=== PATIENT | male | born 1945 | race Hispanic/Latino ===

== ENCOUNTER 2020-02-01 07:21 | Day surgery (SDC) | payer OTHER ==
[2020-02-01] VITALS (16 sets, daily range): BP systolic 83–181; BP diastolic 46–87
[~2020-02-01] VITALS: Ht 169.2 cm; Wt 86.9 kg
[~2020-02-01 07:21] MED LIST: AEC81 PO; ATEN25TA PO; ATOR40TA69 PO; CHOL100053 PO; FERR325T22 PO; INSU100V12 SQ; PANT40TA25 PO; SEVE800T27 PO
[2020-02-01 08:34] LABS: BASOPHILS % (AUTO) 1.2 % (0.0-5.0); EOSINOPHILS % (AUTO) 4.1 % (0.0-8.0); HEMATOCRIT 34.7 % (42-54); LYMPHOCYTES % (AUTO) 24.8 % (21.0-51.0); MEAN CORPUSCULAR HEMOGLOBIN 29.8 pg (27.0-33.0); MEAN CORPUSCULAR HGB CONC 30.8 g/dL (32.0-36.0); MEAN CORPUSCULAR VOLUME 96.7 fL (79-99); MONOCYTES % (AUTO) 11.3 % (3.0-13.0); NEUTROPHILS % (AUTO) 58.4 % (40.0-77.0); PLATELET COUNT (AUTO) 235 K/uL (130-400); RED BLOOD CELL COUNT(AUTO) 3.59 MIL/uL (4.50-6.20); RED CELL DISTRIBUTION WIDTH 15.7 % (11.0-15.5); WHITE BLOOD COUNT (AUTO) 8.3 K/uL (4.8-10.8)
[2020-02-01 08:47] LABS: CREATININE 7.3 mg/dL (0.5-1.5); POTASSIUM 5.5 mmol/L (3.5-5.1)
[2020-02-01 08:48] LABS: INR 0.92 (0.85-1.15); PARTIAL THROMBOPLASTIN TIME 25.5 SEC (26.3-35.5)
[2020-02-01 08:50] LABS: HEMOGLOBIN A1C 11.2 % (4.0-6.0)
[2020-02-01 08:52] LABS: ALBUMIN 3.3 g/dL (3.5-5.0); BILIRUBIN,TOTAL 0.4 mg/dL (0.2-1.0); TOTAL PROTEIN, SERUM 7.1 g/dL (6.0-8.3)
[2020-02-01] MEDS ORDERED: CA/D1TAB3 PO (09:07)
[2020-02-01] MEDS ORDERED: FOLI0.8T2 PO (09:07)
[2020-02-01] MEDS ORDERED: CYAN250010 PO (09:07)
[2020-02-01] MEDS ORDERED: LOSA100T58 PO (09:07)
[2020-02-01] MEDS ORDERED: ZINC50TA64 PO (09:07)
[2020-02-01] MEDS ORDERED: SODIUM CHLORIDE 0.9% 1000ML 1,000 ML IV ONE (09:11)
[2020-02-01] MEDS: CEFUROXIME SODIUM 1.5 GM VIAL ONE ×2 (09:20→11:10)
[2020-02-01] MEDS ORDERED: MIDAZOLAM HCL 1 MG/ML 2ML VIAL ONE (10:33)
[2020-02-01] MEDS ORDERED: ROPIVACAINE 0.5% 5MG/ML 30ML IJ ONE (10:34)
[2020-02-01] MEDS ORDERED: KETAMINE 50MG/ML SYRINGE 50 MG/ML DISP.SYRIN IV ONE (11:11)
[2020-02-01] MEDS ORDERED: CEFAZOLIN SODIUM 1 GM VIAL ONE (11:14)
[2020-02-01] MEDS ORDERED: TRAMADOL HCL 50 MG TABLET PO PRN ×2 (11:30)
[2020-02-01] MEDS ORDERED: ACETAMINOPHEN 325 MG TAB PO PRN (11:30)
[2020-02-01] MEDS ORDERED: TRAM50TA4 PO (11:32)
[2020-02-01] MEDS ORDERED: EPHEDRINE SULFATE 50 MG/ML AMPULE ONE (11:47)
--- NOTE | 2020-02-01 13:35 | NUR ---
RECEIVED PATIENT FROM JALEESA WARNER. PATIENT AAOX3, RESPIRATIONS UNLABORED, VITAL SIGNS STABLE, DENIES ANY PAIN AT THIS TIME. DRESSING TO LEFT FOREARM IS DRY AND INTACT, NO BLEEDING OR DRAINING NOTED. PATIENT STATED THAT HIS LEFT ARM FEELS NUMB BUT HE IS ABLE TO MOVE HIS FINGERS ON HIS LEFT HAND. EXPLAINED TO PATIENT THAT NERVE BLOCK WILL BE WEARING OFF IN A FEW HOURS.
--- NOTE | 2020-02-01 13:55 | NUR ---
DISHARGE INSTRUCTIONS PROVIDED TO PATIENT'S DAUGHTER , GAURI, VIA TELEPHONE. FOLLOW UP APPOINTMENT PROVIDED AND HANDOUTS WITH INCISION CARE PROVIDED WELL. INSTRUCTED DAUGHTER THAT PAIN MEDICATION WAS CALLED INTO [facility] FOR THE PATIENT. ALL QUESTIONS/CONCERNS ADDRESSED.
--- NOTE | 2020-02-01 14:15 | NUR ---
PATIENT DISCHARGED FROM FACILITY VIA WHEELCHAIR BY NURSE. PATIENT ASSISTED INTO PRIVATE VEHICLE DRIVEN BY FAMILY MEMBER.
== END 2020-02-01 14:15 | disposition home or self-care (01) ==
LOC: DAH 07:21
PROVIDERS: ATTEND Thoracic Surgery (Cardiothoracic Vascular Surgery)
DX: T82.590A Other mechanical complication of surgically created arteriovenous fistula, initial encounter (principal); I12.0 Hypertensive chronic kidney disease with stage 5 chronic kidney disease or end stage renal disease; N18.6 End stage renal disease; E11.22 Type 2 diabetes mellitus with diabetic chronic kidney disease; Z79.82 Long term (current) use of aspirin; Z79.4 Long term (current) use of insulin; Z79.899 Other long term (current) drug therapy; Y83.8 Other surgical procedures as the cause of abnormal reaction of the patient, or of later complication, without mention of misadventure at the time of the procedure
CPT/HCPCS: 36415; 36821; 71045; 80053; 82948 ×2; 83036; 85025; 85610; 85730; 93005; A4215; A4221; A4222; A4223; A4649; A4663; A6207; C1713 ×2; G0168; J0690; J0697; J1644; J2250; J2795; J3490 ×2; J7030

== ENCOUNTER 2020-03-25 15:21 | Inpatient (IN) | payer OTHER ==
[~2020-03-25] VITALS: Ht 167.6 cm; Wt 82.6 kg
[~2020-03-25 15:21] MED LIST changes: +CA/D1TAB3 PO; -CHOL100053 PO; +CYAN250010 PO; +FOLI0.8T2 PO; +LOSA100T58 PO; -PANT40TA25 PO; +TRAM50TA4 PO; +ZINC50TA64 PO
[2020-03-25 16:42] LABS: BASOPHILS % (AUTO) 0.4 % (0.0-5.0); EOSINOPHILS % (AUTO) 0.2 % (0.0-8.0); HEMATOCRIT 37.2 % (42-54); LYMPHOCYTES % (AUTO) 19.8 % (21.0-51.0); MEAN CORPUSCULAR HEMOGLOBIN 28.7 pg (27.0-33.0); MEAN CORPUSCULAR HGB CONC 31.5 g/dL (32.0-36.0); MEAN CORPUSCULAR VOLUME 91.2 fL (79-99); NEUTROPHILS % (AUTO) 66.7 % (40.0-77.0); PLATELET COUNT (AUTO) 234 K/uL (130-400); RED BLOOD CELL COUNT(AUTO) 4.08 MIL/uL (4.50-6.20); RED CELL DISTRIBUTION WIDTH 15.4 % (11.0-15.5); WHITE BLOOD COUNT (AUTO) 4.5 K/uL (4.8-10.8)
[2020-03-25 16:51] LABS: CREATININE 7.4 mg/dL (0.5-1.5); POTASSIUM 4.6 mmol/L (3.5-5.1)
[2020-03-25 16:56] LABS: ALBUMIN 3.1 g/dL (3.5-5.0); BILIRUBIN,TOTAL 0.4 mg/dL (0.2-1.0); TOTAL PROTEIN, SERUM 7.2 g/dL (6.0-8.3)
[2020-03-25 17:00] LABS: B-TYPE NATRIURETIC PEPTIDE 234 pg/mL (0-100)
[2020-03-25 18:53] LABS: ABG BASE EXCESS -1.1 mmol/L (-2.0-3.0); ABG HCO3 23.9 mmol/L (21.0-28.0); ABG OXYGEN SATURATION 94.1 % (95.0-99.0); ABG PCO2 41 mmHg (35-48)
[2020-03-25] MEDS ORDERED: ONDANSETRON HCL 4 MG/2 ML VIAL IVP PRN (20:45)
[2020-03-25 21:00] VITALS: BP 205/85
[2020-03-25] MEDS: INSULIN R PO SS1 SQ SCH (21:00)
[2020-03-25] MEDS: DEXAMETHASONE SOD PHOSPHATE 4 MG/ML 1ML VIAL IVP SCH (21:00)
[2020-03-25 21:15] LABS: APPEARANCE,URINE Clear (CLEAR); BILIRUBIN,URINE Negative (NEGATIVE); COLOR,URINE Yellow (YELLOW); GLUCOSE, URINE (UA) 500 mg/dL (NEGATIVE); KETONES,URINE Trace mg/dL (NEGATIVE); LEUKOCYTE ESTERASE ,URINE Negative (NEGATIVE); NITRATE,URINE Negative (NEGATIVE); OCCULT BLOOD,URINE Negative (NEGATIVE); PH,URINE 7.5 (5.0-8.0); PROTEIN,URINE >=1000 mg/dL (NEGATIVE)
[2020-03-25 21:23] LABS: BACTERIA,URINE Rare /HPF (None Seen); RBC,URINE 0-1 /HPF (0-1); SQUAMOUS EPITHELIAL CELL,UR Rare /HPF (0-2); WBC,URINE 0-1 /HPF (0-1)
[2020-03-25] MEDS ORDERED: ATOR40TA69 PO (22:20)
[2020-03-25] MEDS ORDERED: ATEN25TA PO (22:20)
[2020-03-25] MEDS ORDERED: PANT40TA25 PO (22:20)
[2020-03-25] MEDS ORDERED: LOSA100T58 PO (22:20)
[2020-03-25] MEDS ORDERED: CYAN1TAB41 SL (22:20)
[2020-03-25] MEDS ORDERED: ENOXAPARIN SODIUM 40 MG/0.4 ML SYRINGE SQ ONE (22:29)
[2020-03-25] MEDS ORDERED: HYDRALAZINE HCL 20 MG/ML VIAL ONE (22:29)
[2020-03-25] MEDS ORDERED: INSULIN HUMULIN R 100 UNIT/ML 3ML ONE (22:34)
[2020-03-25] MEDS ORDERED: HYDRALAZINE HCL 20 MG/ML VIAL IV PRN (23:00)
[2020-03-25] MEDS: ENOXAPARIN SODIUM 40 MG/0.4 ML SYRINGE SQ SCH (23:00)
[2020-03-25] MEDS ORDERED: NITROGLYCERIN 1GM/1 INCH PACKET TD ONE (23:34)
[2020-03-25] MEDS ORDERED: LABETALOL HCL 5 MG/ML 20ML VIAL IV ONE (23:34)
[2020-03-25] MEDS ORDERED: MORPHINE SULFATE 2 MG/ML 1ML SYG ONE (23:35)
[2020-03-25 23:44] LABS: HEMATOCRIT 38.7 % (42-54); MEAN CORPUSCULAR HEMOGLOBIN 28.5 pg (27.0-33.0); MEAN CORPUSCULAR HGB CONC 31.8 g/dL (32.0-36.0); MEAN CORPUSCULAR VOLUME 89.6 fL (79-99); RED BLOOD CELL COUNT(AUTO) 4.32 MIL/uL (4.50-6.20); RED CELL DISTRIBUTION WIDTH 15.4 % (11.0-15.5)
[2020-03-26] MEDS ORDERED: LABETALOL HCL 5 MG/ML 20ML VIAL IV PRN
[2020-03-26] MEDS ORDERED: ALBUTEROL SULFATE 0.083% 2.5 MG/3 ML INH IH SCH
[2020-03-26] MEDS ORDERED: MORPHINE SULFATE 2 MG/ML 1ML SYG IVP PRN
[2020-03-26 00:01] VITALS: BP 160/87
[2020-03-26 00:05] LABS: ALANINE AMINOTRANSFERASE 17 U/L (12-78); ALBUMIN 3.1 g/dL (3.5-5.0); ASPARTATE AMINOTRANSFERASE 26 U/L (10-37); BILIRUBIN,TOTAL 0.4 mg/dL (0.2-1.0); CARBON DIOXIDE 27 mmol/L (21-32); CHLORIDE 96 mmol/L (101-111); CREATINE KINASE, TOTAL 59 U/L (21-232); GLOMERULAR FILTR. RATE CALC 7 mL/min (>60); GLUCOSE,RANDOM 248 mg/dL (70-105); MYOGLOBIN 354 ng/mL (10-92); SODIUM SERUM 136 mmol/L (136-145); TOTAL PROTEIN, SERUM 7.3 g/dL (6.0-8.3); TROPONIN I < 0.04 ng/mL (0.00-0.06); UREA NITROGEN, BLOOD 51 mg/dL (7-18)
[2020-03-26 00:06] LABS: CREATININE 8.2 mg/dL (0.5-1.5)
[2020-03-26] MEDS ORDERED: AZITHROMYCIN 500MG+NS 250ML 250 ML IV ONE ×2 (00:07→22:18)
[2020-03-26] MEDS ORDERED: DEXAMETHASONE SOD PHOSPHATE 10MG/ML 1ML VIAL ONE (00:07)
[2020-03-26] MEDS: AZITHROMYCIN 500MG+NS 250ML 250 ML IV SCH ×2 (00:09→21:58)
[2020-03-26] MEDS ORDERED: ALBUTEROL INHALER 90MCG/INH IH PRN (01:45)
[2020-03-26 04:00] VITALS: BP 149/67
[2020-03-26 04:40] LABS: BASOPHILS % (AUTO) 0.7 % (0.0-5.0); EOSINOPHILS % (AUTO) 0.9 % (0.0-8.0); HEMATOCRIT 37.2 % (42-54); LYMPHOCYTES % (AUTO) 20.1 % (21.0-51.0); MEAN CORPUSCULAR HEMOGLOBIN 28.6 pg (27.0-33.0); MEAN CORPUSCULAR HGB CONC 31.7 g/dL (32.0-36.0); MEAN CORPUSCULAR VOLUME 90.1 fL (79-99); MONOCYTES % (AUTO) 10.6 % (3.0-13.0); NEUTROPHILS % (AUTO) 66.8 % (40.0-77.0); PLATELET COUNT (AUTO) 228 K/uL (130-400); RED BLOOD CELL COUNT(AUTO) 4.13 MIL/uL (4.50-6.20); RED CELL DISTRIBUTION WIDTH 15.5 % (11.0-15.5); WHITE BLOOD COUNT (AUTO) 4.5 K/uL (4.8-10.8)
[2020-03-26 04:46] LABS: POTASSIUM 4.3 mmol/L (3.5-5.1)
[2020-03-26 04:51] LABS: CREATININE 8.4 mg/dL (0.5-1.5)
[2020-03-26] MEDS ORDERED: NITROGLYCERIN 1GM/1 INCH PACKET TD ONE ×3 (04:58→22:18)
[2020-03-26] MEDS: INSULIN R PO SS1 SQ SCH ×2 (05:22→21:53)
[2020-03-26] MEDS: NITROGLYCERIN 1GM/1 INCH PACKET TD SCH ×3 (05:22→21:59)
[2020-03-26] MEDS ORDERED: ENOXAPARIN SODIUM 40 MG/0.4 ML SYRINGE SQ ONE ×2 (08:27→22:18)
[2020-03-26] MEDS ORDERED: PANTOPRAZOLE SODIUM 40 MG TABLET.DR ONE (08:27)
[2020-03-26] MEDS ORDERED: ASPIRIN 81 MG EC TAB ONE (08:28)
[2020-03-26] MEDS ORDERED: LOSARTAN 50 MG TABLET ONE (08:28)
[2020-03-26] MEDS: ASPIRIN 81 MG EC TAB PO SCH (08:59)
[2020-03-26] MEDS: FOLIC ACID/VITAMIN B COMP W-C 1 CAP TAB PO SCH ×2 (09:00→09:31)
[2020-03-26] MEDS: CYANOCOBALAMIN (VITAMIN B-12) 1,000 MCG TABLET PO SCH ×2 (09:00→09:30)
[2020-03-26] MEDS ORDERED: SEVELAMER HCL 800 MG TABLET PO SCH (09:00)
[2020-03-26] MEDS: PANTOPRAZOLE SODIUM 40 MG TABLET.DR PO SCH (09:02)
[2020-03-26] MEDS: LOSARTAN 100 MG TABLET PO SCH (09:03)
[2020-03-26] MEDS ORDERED: SEVELAMER HCL 800 MG TABLET ONE ×2 (09:04→12:12)
[2020-03-26] MEDS: ENOXAPARIN SODIUM 40 MG/0.4 ML SYRINGE SQ SCH ×2 (09:06→22:00)
[2020-03-26] MEDS: SEVELAMER HCL 800 MG TABLET PO SCH (12:00)
[2020-03-26] MEDS ORDERED: ALBUMIN (HUMAN) 25% 100 ML IV ONE (13:56)
[2020-03-26] MEDS ORDERED: ACETAMINOPHEN 325 MG TAB PO PRN (14:15)
[2020-03-26] MEDS ORDERED: HEPARIN SODIUM 5000UNIT/ML 1ML VIAL IJ PRN (14:15)
[2020-03-26] MEDS ORDERED: 0.9% SODIUM CHLORIDE 1000 ML IV BAG IV PRN (14:15)
[2020-03-26] MEDS ORDERED: LIDOCAINE HCL-MPF 1% 2ML VIAL IJ PRN (14:15)
[2020-03-26] MEDS ORDERED: SODIUM CHLORIDE 0.9% 1000ML 1,000 ML IV PRN (14:15)
[2020-03-26] MEDS ORDERED: HEPARIN SODIUM 5000UNIT/ML 1ML VIAL ONE (14:38)
[2020-03-26] MEDS ORDERED: ACETAMINOPHEN 325 MG TAB ONE (18:49)
[2020-03-26 20:05] VITALS: BP 143/69
[2020-03-26] MEDS: DEXAMETHASONE SOD PHOSPHATE 4 MG/ML 1ML VIAL IVP SCH (21:58)
[2020-03-26] MEDS: ATORVASTATIN CALCIUM 40 MG TABLET PO SCH (21:59)
[2020-03-26] MEDS ORDERED: DEXAMETHASONE SOD PHOSPHATE 4 MG/ML 1ML VIAL ONE (22:17)
[2020-03-26] MEDS ORDERED: ATORVASTATIN CALCIUM 40 MG TABLET ONE (22:17)
[2020-03-26] MEDS: ATENOLOL 25 MG TABLET PO SCH (22:50)
[2020-03-27 00:45] VITALS: BP 137/78
[2020-03-27 04:00] VITALS: BP 135/61
[2020-03-27] MEDS ORDERED: NITROGLYCERIN 1GM/1 INCH PACKET TD ONE ×3 (05:08→16:53)
[2020-03-27] MEDS ORDERED: PANTOPRAZOLE SODIUM 40 MG TABLET.DR ONE (05:09)
[2020-03-27 05:12] LABS: HEMATOCRIT 35.6 % (42-54); MEAN CORPUSCULAR HEMOGLOBIN 28.5 pg (27.0-33.0); MEAN CORPUSCULAR HGB CONC 31.7 g/dL (32.0-36.0); MEAN CORPUSCULAR VOLUME 89.7 fL (79-99); PLATELET COUNT (AUTO) 221 K/uL (130-400); RED BLOOD CELL COUNT(AUTO) 3.97 MIL/uL (4.50-6.20); RED CELL DISTRIBUTION WIDTH 15.3 % (11.0-15.5); WHITE BLOOD COUNT (AUTO) 3.2 K/uL (4.8-10.8)
[2020-03-27] MEDS: NITROGLYCERIN 1GM/1 INCH PACKET TD SCH ×4 (05:15→16:58)
[2020-03-27 05:31] LABS: CREATININE 6.7 mg/dL (0.5-1.5); LYMPHOCYTES % (MANUAL) 16 % (22-44); MONOCYTES % (MANUAL) 8 % (2-9); PHOSPHORUS 5.3 mg/dL (2.5-4.9); POTASSIUM 4.7 mmol/L (3.5-5.1); SEGMENTED NEUTROPHILS % 76 % (40-70)
[2020-03-27 05:32] LABS: MAN.DIFF COMMENT-IMPRESSION MANUAL DIFFERENTIAL; PLATELET MORPHOLOGY COMMENT ADEQUATE
[2020-03-27] MEDS: PANTOPRAZOLE SODIUM 40 MG TABLET.DR PO SCH (06:15)
[2020-03-27] MEDS ORDERED: INSULIN HUMULIN R 100 UNIT/ML 3ML ONE ×4 (06:33→21:50)
[2020-03-27] MEDS: INSULIN R PO SS1 SQ SCH ×4 (06:37→22:05)
[2020-03-27] MEDS ORDERED: THIAMINE HCL 100 MG TABLET ONE (08:33)
[2020-03-27] MEDS ORDERED: ASPIRIN 81MG TAB.CHEW ONE (08:33)
[2020-03-27] MEDS ORDERED: LOSARTAN 50 MG TABLET ONE ×2 (08:34→08:41)
[2020-03-27] MEDS ORDERED: ENOXAPARIN SODIUM 40 MG/0.4 ML SYRINGE SQ ONE ×2 (08:34→20:36)
[2020-03-27] MEDS ORDERED: SEVELAMER HCL 800 MG TABLET ONE ×3 (08:41→16:53)
[2020-03-27] MEDS ORDERED: ASPIRIN 81 MG EC TAB ONE (08:50)
[2020-03-27] MEDS: ASPIRIN 81 MG EC TAB PO SCH (08:50)
[2020-03-27] MEDS: FOLIC ACID/VITAMIN B COMP W-C 1 CAP TAB PO SCH (08:51)
[2020-03-27] MEDS: CYANOCOBALAMIN (VITAMIN B-12) 1,000 MCG TABLET PO SCH (08:51)
[2020-03-27] MEDS: ENOXAPARIN SODIUM 40 MG/0.4 ML SYRINGE SQ SCH ×2 (08:52→21:39)
[2020-03-27] MEDS: LOSARTAN 100 MG TABLET PO SCH (09:07)
[2020-03-27] MEDS: SEVELAMER HCL 800 MG TABLET PO SCH ×3 (16:58→18:43)
[2020-03-27 20:02] VITALS: BP 176/85
[2020-03-27] MEDS ORDERED: AZITHROMYCIN 500MG+NS 250ML 250 ML IV ONE (20:33)
[2020-03-27] MEDS ORDERED: DEXAMETHASONE 4 MG TAB ONE (20:34)
[2020-03-27] MEDS ORDERED: ATORVASTATIN CALCIUM 40 MG TABLET ONE (20:35)
[2020-03-27] MEDS: AZITHROMYCIN 500MG+NS 250ML 250 ML IV SCH (21:33)
[2020-03-27] MEDS: ATORVASTATIN CALCIUM 40 MG TABLET PO SCH (21:37)
[2020-03-27] MEDS: ATENOLOL 25 MG TABLET PO SCH (21:38)
[2020-03-27] MEDS ORDERED: DEXAMETHASONE SOD PHOSPHATE 10MG/ML 1ML VIAL ONE (21:51)
[2020-03-27] MEDS: DEXAMETHASONE SOD PHOSPHATE 4 MG/ML 1ML VIAL IVP SCH (22:02)
[2020-03-27] MEDS ORDERED: MORPHINE SULFATE 2 MG/ML 1ML SYG ONE (23:35)
[2020-03-28] MEDS ORDERED: NITROGLYCERIN 1GM/1 INCH PACKET TD ONE ×4 (00:21→17:19)
[2020-03-28] MEDS: NITROGLYCERIN 1GM/1 INCH PACKET TD SCH ×2 (00:23→06:01)
[2020-03-28 00:47] VITALS: BP 131/57
[2020-03-28 04:14] VITALS: BP 170/79
[2020-03-28 05:39] LABS: BASOPHILS % (AUTO) 0.2 % (0.0-5.0); HEMATOCRIT 37.4 % (42-54); LYMPHOCYTES % (AUTO) 14.2 % (21.0-51.0); MEAN CORPUSCULAR HEMOGLOBIN 28.7 pg (27.0-33.0); MEAN CORPUSCULAR HGB CONC 31.8 g/dL (32.0-36.0); MEAN CORPUSCULAR VOLUME 90.1 fL (79-99); PLATELET COUNT (AUTO) 241 K/uL (130-400); RED BLOOD CELL COUNT(AUTO) 4.15 MIL/uL (4.50-6.20); RED CELL DISTRIBUTION WIDTH 15.2 % (11.0-15.5); WHITE BLOOD COUNT (AUTO) 5.3 K/uL (4.8-10.8)
[2020-03-28 06:02] VITALS: BP 158/85
[2020-03-28 06:12] LABS: ALBUMIN 3.1 g/dL (3.5-5.0); BILIRUBIN,TOTAL 0.4 mg/dL (0.2-1.0); MAGNESIUM 2.5 mg/dL (1.80-2.40); PHOSPHORUS 5.7 mg/dL (2.5-4.9)
[2020-03-28 06:17] LABS: CREATININE 8.5 mg/dL (0.5-1.5)
[2020-03-28] MEDS ORDERED: PANTOPRAZOLE SODIUM 40 MG TABLET.DR ONE (06:19)
[2020-03-28] MEDS: PANTOPRAZOLE SODIUM 40 MG TABLET.DR PO SCH (06:20)
[2020-03-28] MEDS: INSULIN R PO SS1 SQ SCH (06:52)
[2020-03-28] MEDS ORDERED: ASPIRIN 81MG TAB.CHEW ONE (10:29)
[2020-03-28] MEDS ORDERED: ENOXAPARIN SODIUM 40 MG/0.4 ML SYRINGE SQ ONE ×2 (10:30→21:18)
[2020-03-28] MEDS ORDERED: SEVELAMER HCL 800 MG TABLET ONE ×3 (10:31→16:52)
[2020-03-28] MEDS ORDERED: LOSARTAN 50 MG TABLET ONE (10:37)
[2020-03-28] MEDS ORDERED: INSULIN HUMULIN R 100 UNIT/ML 3ML ONE ×3 (12:12→21:44)
[2020-03-28] MEDS ORDERED: ACETAMINOPHEN 325 MG TAB ONE (17:21)
[2020-03-28] MEDS ORDERED: ATORVASTATIN CALCIUM 40 MG TABLET ONE (21:17)
[2020-03-28] MEDS ORDERED: DEXAMETHASONE SOD PHOSPHATE 4 MG/ML 1ML VIAL ONE (21:17)
[2020-03-28] MEDS ORDERED: MORPHINE SULFATE 2 MG/ML 1ML SYG ONE (21:18)
[2020-03-28] MEDS ORDERED: AZITHROMYCIN 500MG+NS 250ML 250 ML IV ONE (21:18)
[2020-03-29] MEDS ORDERED: NITROGLYCERIN 1GM/1 INCH PACKET TD ONE (01:35)
[2020-03-29 05:39] LABS: BASOPHILS % (AUTO) 0.1 % (0.0-5.0); HEMATOCRIT 35.9 % (42-54); LYMPHOCYTES % (AUTO) 8.6 % (21.0-51.0); MEAN CORPUSCULAR HEMOGLOBIN 27.9 pg (27.0-33.0); MEAN CORPUSCULAR HGB CONC 31.2 g/dL (32.0-36.0); MEAN CORPUSCULAR VOLUME 89.5 fL (79-99); MONOCYTES % (AUTO) 4.7 % (3.0-13.0); NEUTROPHILS % (AUTO) 86.1 % (40.0-77.0); PLATELET COUNT (AUTO) 242 K/uL (130-400); RED BLOOD CELL COUNT(AUTO) 4.01 MIL/uL (4.50-6.20); RED CELL DISTRIBUTION WIDTH 15.3 % (11.0-15.5); WHITE BLOOD COUNT (AUTO) 7.8 K/uL (4.8-10.8)
[2020-03-29 06:04] LABS: BILIRUBIN,TOTAL 0.3 mg/dL (0.2-1.0); MAGNESIUM 2.6 mg/dL (1.80-2.40); PHOSPHORUS 5.9 mg/dL (2.5-4.9); POTASSIUM 5.3 mmol/L (3.5-5.1); TOTAL PROTEIN, SERUM 6.7 g/dL (6.0-8.3)
[2020-03-29 06:22] LABS: CREATININE 10.1 mg/dL (0.5-1.5)
[2020-03-29] MEDS: PANTOPRAZOLE SODIUM 40 MG TABLET.DR PO SCH (07:00)
[2020-03-29] MEDS: FOLIC ACID/VITAMIN B COMP W-C 1 CAP TAB PO SCH (09:00)
[2020-03-29] MEDS: LOSARTAN 100 MG TABLET PO SCH (09:00)
[2020-03-29] MEDS: CYANOCOBALAMIN (VITAMIN B-12) 1,000 MCG TABLET PO SCH (09:00)
[2020-03-29] MEDS: ASPIRIN 81 MG EC TAB PO SCH (09:00)
[2020-03-29] MEDS ORDERED: ENOXAPARIN SODIUM 40 MG/0.4 ML SYRINGE SQ ONE ×2 (09:34→22:38)
[2020-03-29] MEDS ORDERED: DEXAMETHASONE 4 MG TAB ONE (09:34)
[2020-03-29] MEDS ORDERED: ASPIRIN 81MG TAB.CHEW ONE (09:34)
[2020-03-29] MEDS ORDERED: PANTOPRAZOLE SODIUM 40 MG TABLET.DR ONE (09:35)
[2020-03-29] MEDS ORDERED: INSULIN HUMULIN R 100 UNIT/ML 3ML ONE ×3 (09:36→17:41)
[2020-03-29] MEDS ORDERED: FUROSEMIDE 10 MG/ML 4ML VIAL ONE (10:26)
[2020-03-29] MEDS ORDERED: CEFTRIAXONE SODIUM 1 GM ONE (10:27)
[2020-03-29 14:14] LABS: BASOPHILS % (AUTO) 0.1 % (0.0-5.0); HEMATOCRIT 38.9 % (42-54); LYMPHOCYTES % (AUTO) 17.2 % (21.0-51.0); MEAN CORPUSCULAR HEMOGLOBIN 28.6 pg (27.0-33.0); MEAN CORPUSCULAR HGB CONC 31.9 g/dL (32.0-36.0); MEAN CORPUSCULAR VOLUME 89.6 fL (79-99); MONOCYTES % (AUTO) 8.5 % (3.0-13.0); NEUTROPHILS % (AUTO) 73.9 % (40.0-77.0); PLATELET COUNT (AUTO) 285 K/uL (130-400); RED BLOOD CELL COUNT(AUTO) 4.34 MIL/uL (4.50-6.20); RED CELL DISTRIBUTION WIDTH 15.4 % (11.0-15.5); WHITE BLOOD COUNT (AUTO) 9.5 K/uL (4.8-10.8)
[2020-03-29 14:19] LABS: CREATININE 5.6 mg/dL (0.5-1.5); MAGNESIUM 2.2 mg/dL (1.80-2.40); POTASSIUM 3.5 mmol/L (3.5-5.1)
[2020-03-29] MEDS: SEVELAMER HCL 800 MG TABLET PO SCH (17:00)
[2020-03-29] MEDS ORDERED: SEVELAMER HCL 800 MG TABLET ONE (17:43)
[2020-03-29] MEDS: NITROGLYCERIN 1GM/1 INCH PACKET TD SCH (18:00)
[2020-03-29] MEDS ORDERED: MORPHINE SULFATE 2 MG/ML 1ML SYG ONE (18:36)
[2020-03-29] MEDS: ATENOLOL 25 MG TABLET PO SCH (21:00)
[2020-03-29] MEDS: ATORVASTATIN CALCIUM 40 MG TABLET PO SCH (21:00)
[2020-03-29] MEDS: ENOXAPARIN SODIUM 40 MG/0.4 ML SYRINGE SQ SCH (21:00)
[2020-03-29] MEDS: INSULIN R PO SS1 SQ SCH (21:00)
[2020-03-29] MEDS: DEXAMETHASONE SOD PHOSPHATE 4 MG/ML 1ML VIAL IVP SCH (21:00)
[2020-03-29] MEDS ORDERED: ATORVASTATIN CALCIUM 40 MG TABLET ONE ×2 (22:37→22:49)
[2020-03-29] MEDS ORDERED: DEXAMETHASONE SOD PHOSPHATE 10MG/ML 1ML VIAL ONE (22:37)
[2020-03-29] MEDS ORDERED: ACETAMINOPHEN 325 MG TAB ONE (22:38)
[2020-03-30 00:18] VITALS: BP 99/62
[2020-03-30 03:52] VITALS: BP 145/74
[2020-03-30] MEDS: NITROGLYCERIN 1GM/1 INCH PACKET TD SCH ×4 (04:29→17:06)
[2020-03-30] MEDS: PANTOPRAZOLE SODIUM 40 MG TABLET.DR PO SCH ×2 (05:36→09:19)
[2020-03-30 05:46] LABS: BASOPHILS % (AUTO) 0.3 % (0.0-5.0); HEMATOCRIT 38.7 % (42-54); LYMPHOCYTES % (AUTO) 13.8 % (21.0-51.0); MEAN CORPUSCULAR HEMOGLOBIN 28.9 pg (27.0-33.0); MEAN CORPUSCULAR VOLUME 90.2 fL (79-99); NEUTROPHILS % (AUTO) 74.3 % (40.0-77.0); PLATELET COUNT (AUTO) 239 K/uL (130-400); RED BLOOD CELL COUNT(AUTO) 4.29 MIL/uL (4.50-6.20); RED CELL DISTRIBUTION WIDTH 15.3 % (11.0-15.5); WHITE BLOOD COUNT (AUTO) 6.8 K/uL (4.8-10.8)
[2020-03-30 06:18] LABS: HEMOGLOBIN A1C 11.9 % (4.0-6.0)
[2020-03-30 06:19] LABS: ALBUMIN 3.1 g/dL (3.5-5.0); BILIRUBIN,TOTAL 0.6 mg/dL (0.2-1.0); MAGNESIUM 2.2 mg/dL (1.80-2.40); PHOSPHORUS 5.2 mg/dL (2.5-4.9); POTASSIUM 4.5 mmol/L (3.5-5.1); TOTAL PROTEIN, SERUM 7.1 g/dL (6.0-8.3)
[2020-03-30 06:26] LABS: CREATININE 8.6 mg/dL (0.5-1.5)
[2020-03-30] MEDS: INSULIN R PO SS1 SQ SCH ×4 (06:34→21:00)
[2020-03-30 08:00] VITALS: BP 146/57
[2020-03-30] MEDS: SEVELAMER HCL 800 MG TABLET PO SCH ×3 (09:19→17:03)
[2020-03-30] MEDS: LOSARTAN 100 MG TABLET PO SCH (09:19)
[2020-03-30] MEDS: ASPIRIN 81 MG EC TAB PO SCH (09:19)
[2020-03-30] MEDS: FOLIC ACID/VITAMIN B COMP W-C 1 CAP TAB PO SCH (09:20)
[2020-03-30] MEDS: ENOXAPARIN SODIUM 40 MG/0.4 ML SYRINGE SQ SCH ×2 (09:22→21:10)
[2020-03-30] MEDS: CYANOCOBALAMIN (VITAMIN B-12) 1,000 MCG TABLET PO SCH (09:23)
[2020-03-30 12:00] VITALS: BP 140/75
[2020-03-30 16:00] VITALS: BP 163/86
[2020-03-30 20:00] VITALS: BP 145/79
[2020-03-30] MEDS: DEXAMETHASONE SOD PHOSPHATE 4 MG/ML 1ML VIAL IVP SCH (21:10)
[2020-03-30] MEDS: ATENOLOL 25 MG TABLET PO SCH (21:11)
[2020-03-30] MEDS: ATORVASTATIN CALCIUM 40 MG TABLET PO SCH (21:11)
[2020-03-31] VITALS (7 sets, daily range): BP systolic 108–154; BP diastolic 48–83
[2020-03-31] MEDS: LACTULOSE 20 GM/30 ML UDCUP PO SCH ×2 (00:56→23:13)
[2020-03-31] MEDS: NITROGLYCERIN 1GM/1 INCH PACKET TD SCH ×5 (00:56→23:34)
[2020-03-31 04:05] LABS: BASOPHILS % (AUTO) 0.3 % (0.0-5.0); HEMATOCRIT 38.8 % (42-54); MEAN CORPUSCULAR HEMOGLOBIN 28.7 pg (27.0-33.0); MEAN CORPUSCULAR HGB CONC 31.4 g/dL (32.0-36.0); MEAN CORPUSCULAR VOLUME 91.3 fL (79-99); MONOCYTES % (AUTO) 3.8 % (3.0-13.0); PLATELET COUNT (AUTO) 238 K/uL (130-400); RED BLOOD CELL COUNT(AUTO) 4.25 MIL/uL (4.50-6.20); RED CELL DISTRIBUTION WIDTH 15.5 % (11.0-15.5); WHITE BLOOD COUNT (AUTO) 6.4 K/uL (4.8-10.8)
[2020-03-31 04:25] LABS: POTASSIUM 5.4 mmol/L (3.5-5.1)
[2020-03-31 05:07] LABS: CREATININE 10.2 mg/dL (0.5-1.5)
[2020-03-31] MEDS: INSULIN R PO SS1 SQ SCH ×4 (05:37→20:46)
[2020-03-31] MEDS: FOLIC ACID/VITAMIN B COMP W-C 1 CAP TAB PO SCH (08:21)
[2020-03-31] MEDS: LOSARTAN 100 MG TABLET PO SCH (08:21)
[2020-03-31] MEDS: ASPIRIN 81 MG EC TAB PO SCH (08:21)
[2020-03-31] MEDS: SEVELAMER HCL 800 MG TABLET PO SCH ×3 (08:21→17:06)
[2020-03-31] MEDS: CYANOCOBALAMIN (VITAMIN B-12) 1,000 MCG TABLET PO SCH (08:22)
[2020-03-31] MEDS: ENOXAPARIN SODIUM 40 MG/0.4 ML SYRINGE SQ SCH ×2 (08:22→20:47)
[2020-03-31] MEDS ORDERED: ALBUMIN (HUMAN) 25% 100 ML IV SCH (14:30)
[2020-03-31] MEDS ORDERED: HEPARIN SODIUM 5000UNIT/ML 1ML VIAL IJ PRN ×2 (15:00)
[2020-03-31] MEDS ORDERED: LIDOCAINE HCL-MPF 1% 2ML VIAL IJ PRN (15:00)
[2020-03-31] MEDS ORDERED: ACETAMINOPHEN 325 MG TAB PO PRN (15:00)
[2020-03-31] MEDS ORDERED: NITROGLYCERIN 0.4 MG SL TAB SL PRN (15:00)
[2020-03-31] MEDS ORDERED: 0.9% SODIUM CHLORIDE 1000 ML IV BAG IV PRN (15:00)
[2020-03-31] MEDS ORDERED: SODIUM CHLORIDE 0.9% 1000ML 1,000 ML IV PRN (15:00)
[2020-03-31] MEDS: ACETAMINOPHEN 325 MG TAB PO PRN (17:52)
[2020-03-31] MEDS: DEXAMETHASONE SOD PHOSPHATE 4 MG/ML 1ML VIAL IVP SCH (20:48)
[2020-03-31] MEDS: ATENOLOL 25 MG TABLET PO SCH (20:48)
[2020-03-31] MEDS: ATORVASTATIN CALCIUM 40 MG TABLET PO SCH (20:48)
[2020-04-01] MEDS: ACETAMINOPHEN 325 MG TAB PO PRN (00:51)
[2020-04-01 04:00] VITALS: BP_SYST 110; BP_SYST 149; BP_DIAS 57; BP_DIAS 75
[2020-04-01] MEDS: NITROGLYCERIN 1GM/1 INCH PACKET TD SCH ×2 (05:32→12:33)
[2020-04-01] MEDS: INSULIN R PO SS1 SQ SCH ×2 (05:33→12:46)
[2020-04-01 08:31] VITALS: BP 134/81
[2020-04-01] MEDS: SEVELAMER HCL 800 MG TABLET PO SCH ×2 (09:07→12:32)
[2020-04-01] MEDS: LOSARTAN 100 MG TABLET PO SCH (09:07)
[2020-04-01] MEDS: ASPIRIN 81 MG EC TAB PO SCH (09:07)
[2020-04-01] MEDS: FOLIC ACID/VITAMIN B COMP W-C 1 CAP TAB PO SCH (09:07)
[2020-04-01] MEDS: CYANOCOBALAMIN (VITAMIN B-12) 1,000 MCG TABLET PO SCH (09:08)
[2020-04-01] MEDS: PANTOPRAZOLE SODIUM 40 MG TABLET.DR PO SCH (09:11)
[2020-04-01] MEDS: ENOXAPARIN SODIUM 40 MG/0.4 ML SYRINGE SQ SCH (09:11)
[2020-04-01 12:45] VITALS: BP 150/84
== END 2020-04-01 17:45 | disposition home or self-care (01) | DRG 177 ==
LOC: EDH 15:21 → EDHIP 20:20 → 4AH 03-29 23:34
PROVIDERS: ADMIT Internal Medicine Critical Care Medicine; ATTEND Internal Medicine Critical Care Medicine
PROC: 5A1D70Z Performance of Urinary Filtration, Intermittent, Less than 6 Hours Per Day (ICD-10-PCS; principal; 2020-03-26)
PROC: 5A1D70Z Performance of Urinary Filtration, Intermittent, Less than 6 Hours Per Day (ICD-10-PCS; 2020-03-29)
PROC: 5A1D70Z Performance of Urinary Filtration, Intermittent, Less than 6 Hours Per Day (ICD-10-PCS; 2020-03-31)
DX: U07.1 COVID-19 (principal); N18.6 End stage renal disease; J96.01 Acute respiratory failure with hypoxia; J12.89 Other viral pneumonia; I12.0 Hypertensive chronic kidney disease with stage 5 chronic kidney disease or end stage renal disease; E11.22 Type 2 diabetes mellitus with diabetic chronic kidney disease; E78.5 Hyperlipidemia, unspecified; E87.70 Fluid overload, unspecified; I25.10 Atherosclerotic heart disease of native coronary artery without angina pectoris; D63.8 Anemia in other chronic diseases classified elsewhere; K21.9 Gastro-esophageal reflux disease without esophagitis; Z99.2 Dependence on renal dialysis; Z85.46 Personal history of malignant neoplasm of prostate; Z91.19 Patient's noncompliance with other medical treatment and regimen; Z79.4 Long term (current) use of insulin; Z79.82 Long term (current) use of aspirin; Z79.899 Other long term (current) drug therapy
CPT/HCPCS: 36415; 36600; 71045; 71250; 80048; 80053; 81001; 82550; 82728; 82803; 82948; 83036; 83605; 83615; 83690; 83735; 83874; 83880; 84100; 84145; 84484; 85025; 85027; 85378; 87040; 90935; 93005; 94760; 97039; 99291; G0378; J0360; J0456; J0696; J1100; J1644; J1650; J1815; J1940; J3490; J8540; P9046; P9047; U0003

== ENCOUNTER → 2020-08-26 | Outpatient (CLI) | payer OTHER ==
[~2020-08-26] MED LIST changes: -CA/D1TAB3 PO; +CYAN1TAB41 SL; -CYAN250010 PO; -FERR325T22 PO; -INSU100V12 SQ; +PANT40TA54 PO; -TRAM50TA4 PO; -ZINC50TA64 PO
== END | disposition home or self-care (01) ==
LOC: RAH 13:09
PROVIDERS: ATTEND Thoracic Surgery (Cardiothoracic Vascular Surgery)
DX: I77.0 Arteriovenous fistula, acquired (principal); N18.6 End stage renal disease; T82.868A Thrombosis due to vascular prosthetic devices, implants and grafts, initial encounter; Z01.818 Encounter for other preprocedural examination; Z99.2 Dependence on renal dialysis
CPT/HCPCS: 93971

== ENCOUNTER 2020-09-19 06:33 | Day surgery (SDC) | payer OTHER ==
[2020-09-14 15:34] LABS: BASOPHILS % (AUTO) 0.7 % (0.0-5.0); EOSINOPHILS % (AUTO) 1.9 % (0.0-8.0); LYMPHOCYTES % (AUTO) 22.6 % (21.0-51.0); MEAN CORPUSCULAR HEMOGLOBIN 31.6 pg (27.0-33.0); MEAN CORPUSCULAR HGB CONC 32.4 g/dL (32.0-36.0); MEAN CORPUSCULAR VOLUME 97.6 fL (79-99); MONOCYTES % (AUTO) 11.6 % (3.0-13.0); NEUTROPHILS % (AUTO) 62.2 % (40.0-77.0); PLATELET COUNT (AUTO) 258 K/uL (130-400); RED BLOOD CELL COUNT(AUTO) 2.97 MIL/uL (4.50-6.20); RED CELL DISTRIBUTION WIDTH 16.3 % (11.0-15.5); WHITE BLOOD COUNT (AUTO) 8.3 K/uL (4.8-10.8)
[2020-09-14 15:40] LABS: CREATININE 5.3 mg/dL (0.5-1.5); POTASSIUM 3.9 mmol/L (3.5-5.1)
[2020-09-14 15:43] LABS: HEMOGLOBIN A1C 9.9 % (4.0-6.0); PROTHROMBIN TIME 10.7 SEC (9.6-11.6)
[2020-09-14 15:45] LABS: PARTIAL THROMBOPLASTIN TIME 25.3 SEC (26.3-35.5)
[2020-09-15 09:50] VITALS: BP 142/66
[2020-09-19] VITALS (17 sets, daily range): BP systolic 133–179; BP diastolic 61–94
[~2020-09-19] VITALS: Ht 167.6 cm; Wt 92.3 kg
[2020-09-19] MEDS: CEFUROXIME SODIUM 1.5 GM VIAL IVP SCH ×3 (06:00→14:19)
[2020-09-19] MEDS ORDERED: PROPOFOL 10 MG/ML 20ML VIAL IV ONE ×2 (07:49→10:51)
[2020-09-19] MEDS ORDERED: LIDOCAINE PF 2% 5ML ABBOJECT ONE ×2 (07:49→10:50)
[2020-09-19] MEDS ORDERED: ROCURONIUM 10MG/1ML SYR 10 MG/ML ML ONE ×2 (07:50→10:51)
[2020-09-19] MEDS ORDERED: KETAMINE 50MG/ML SYRINGE 50 MG/ML DISP.SYRIN IV ONE ×2 (07:52→10:59)
[2020-09-19] MEDS ORDERED: SODIUM CHLORIDE 0.9% 500ML 500 ML IV ONE (08:05)
[2020-09-19] MEDS ORDERED: ACETAMINOPHEN EXTRA STRENGTH 500 MG TABLET ONE (10:01)
[2020-09-19] MEDS ORDERED: DEXAMETHASONE SOD PHOSPHATE 10MG/ML 1ML VIAL ONE (10:50)
[2020-09-19] MEDS ORDERED: GLYCOPYRROLATE 1 MG/5 ML SYRINGE ONE (10:50)
[2020-09-19] MEDS ORDERED: ONDANSETRON HCL 4 MG/2 ML VIAL ONE (10:50)
[2020-09-19] MEDS ORDERED: SUCCINYLCHOLINE 200MG/10ML SYR ONE (10:50)
[2020-09-19] MEDS ORDERED: NEOSTIGMINE 5MG/5ML SYR IV ONE (10:51)
[2020-09-19] MEDS ORDERED: MIDAZOLAM HCL 1 MG/ML 2ML VIAL ONE ×2 (10:51→14:11)
[2020-09-19] MEDS ORDERED: FENTANYL CITRATE PF 50 MCG/1 ML 2ML VIAL ONE ×2 (10:52→14:12)
[2020-09-19] MEDS ORDERED: ZINC PO (11:33)
[2020-09-19] MEDS ORDERED: OMEP20TA25 PO (11:33)
[2020-09-19] MEDS ORDERED: FOLI1CAP16 PO (11:33)
[2020-09-19] MEDS ORDERED: VITAMIN D PO (11:33)
[2020-09-19] MEDS ORDERED: CYAN100T45 PO (11:33)
[2020-09-19] MEDS ORDERED: LOSA50TA64 PO (11:33)
[2020-09-19] MEDS ORDERED: VITAMIN D3 PO (11:33)
[2020-09-19] MEDS ORDERED: VITA-164 PO (11:33)
[2020-09-19] MEDS ORDERED: CEFAZOLIN SODIUM 1 GM VIAL ONE (11:53)
[2020-09-19] MEDS ORDERED: PHENYLEPHRINE HCL 10 MG/ML 1ML VIAL IV ONE (14:59)
[2020-09-19] MEDS ORDERED: HEPARIN SODIUM 1000UNIT/ML 10ML VIAL ONE ×2 (15:14)
[2020-09-19] MEDS ORDERED: MEPERIDINE-PF 25 MG/ML SYG ONE (16:23)
[2020-09-19] MEDS ORDERED: TRAMADOL HCL 50 MG TABLET ONE (17:22)
== END 2020-09-19 18:06 | disposition home or self-care (01) ==
LOC: DAH 06:33
PROVIDERS: ATTEND Thoracic Surgery (Cardiothoracic Vascular Surgery)
DX: N18.6 End stage renal disease (principal); Z20.828 Contact with and (suspected) exposure to other viral communicable diseases; T82.868A Thrombosis due to vascular prosthetic devices, implants and grafts, initial encounter; E11.22 Type 2 diabetes mellitus with diabetic chronic kidney disease; I12.0 Hypertensive chronic kidney disease with stage 5 chronic kidney disease or end stage renal disease; E78.5 Hyperlipidemia, unspecified; K21.9 Gastro-esophageal reflux disease without esophagitis; E66.9 Obesity, unspecified; I70.0 Atherosclerosis of aorta; M47.814 Spondylosis without myelopathy or radiculopathy, thoracic region; Z85.46 Personal history of malignant neoplasm of prostate; Z86.19 Personal history of other infectious and parasitic diseases; Z99.2 Dependence on renal dialysis; Z98.890 Other specified postprocedural states; Z79.899 Other long term (current) drug therapy; Z79.82 Long term (current) use of aspirin; Z79.01 Long term (current) use of anticoagulants; Y83.2 Surgical operation with anastomosis, bypass or graft as the cause of abnormal reaction of the patient, or of later complication, without mention of misadventure at the time of the procedure
CPT/HCPCS: 36415 ×2; 36830; 71045; 80048; 82948 ×2; 83036; 84132; 85025; 85610; 85730; 86850; 86900; 86901; 93005; A4215; A4216; A4221; A4222; A4223 ×2; A4649 ×4; A4663; A4930; A6260; C1713 ×2; C1768; C9803; G0168; J0330; J0690; J0697; J1100; J1644 ×3; J2001 ×2; J2175; J2250; J2370; J2405; J2704 ×2; J2710; J3010; J3490 ×3; J7030; J7040 ×2; U0003